=== PATIENT | male | born 1955 ===

== ENCOUNTER 2018-09-05 17:42 | Emergency (ER) | payer OTHER, MEDICARE, SELFPAY ==
[2018-09-05 17:43] VITALS: BMI 32.8
[2018-09-05 17:47] VITALS: BP 127/80; PULSE 92; RESP 18; TEMP 98.4; O2SAT 99
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
== END 2018-09-05 19:57 | disposition home or self-care (01) ==
LOC: H.ER 17:42
DX: M25.511 Pain in right shoulder (principal); V43.62XA Car passenger injured in collision with other type car in traffic accident, initial encounter; Y92.410 Unspecified street and highway as the place of occurrence of the external cause; E11.9 Type 2 diabetes mellitus without complications; Z79.84 Long term (current) use of oral hypoglycemic drugs; I10 Essential (primary) hypertension
CPT/HCPCS: 73030; 96372; 99282; J1885